=== PATIENT | female | born 1975 | race Caucasian/White ===

== ENCOUNTER 2020-03-23 11:44 | Emergency (ER) | payer SELFPAY ==
[2020-03-23 12:01] VITALS: BP 111/67; PULSE 87; RESP 16; TEMP 36.6; O2SAT 100; BMI 22.8
[2020-03-23 12:05] VITALS: BP 111/78; PULSE 88; RESP 18; O2SAT 98
[2020-03-23 12:20] VITALS: PULSE 88
--- NOTE | 2020-03-23 12:21 | ED_ITS ---
HPI - Extremity Problem General: Chief complaint: Extremity Injury, Upper Stated complaint: right shoulder/arm pain Time Seen by Provider: 03/23/20 12:10 History of Present Illness: HPI Narrative: Patient presents here with right shoulder pain he has a history of a chronic shoulder pain. She says the bicep tendon slides of the bicep groove and shoulder blade. Chiropractor who has had to put that back in place 3 times over the last couple weeks as per patient says that she need to come to the ER to get MRI done. Patient also history of thoracic outlet syndrome has seen neurologist for that. MD Complaint: joint pain Onset (ago): year(s) Pain Consistency: intermittent Location: right and upper extremity Severity scale (1-10): 3 Quality: aching Radiation: none Relieving factors: immobilization Exacerbating factors: range of motion Associated symptoms: Reports no associated symptoms; Deny chest pain, fever(s) or rash Review of Systems Const: Denies: fever(s), chills or body aches Eyes: Denies: change in vision or blurry vision ENMT: Denies: throat pain or nasal congestion Card: Denies: chest pain or dyspnea on exertion Resp: Denies: dyspnea, productive cough or non-productive cough GI: Denies: abdominal pain, nausea or vomiting Musc: Reports: extremity pain (Right shoulder, patient is a hairdresser, occupation aggravates pain) Skin/Breast: Denies: rash Neuro: Denies: headache(s) Psych: Denies: anxiety or depression Vu/Lymph: Denies: easy bruising Physical Exam Const: COMMON NORMALS: no acute distress Extremity: RIGHT UPPER EXTREMITY: Yes shoulder joint (Tenderness along the bicep fossa) Neuro: MOTOR EXAM: 5/5 motor strength present throughout Psych: COMMON NORMALS: mental status grossly normal Course Vital Signs: Vital signs: Vital Signs Temperature 97.9 F 03/23/20 12:01 Pulse Rate 88 03/23/20 12:20 Respiratory Rate 18 03/23/20 12:05 Blood Pressure 111/78 03/23/20 12:05 Pulse Oximetry 98 03/23/20 12:05 Discharge Plan Discharge Patient Disposition: Home Clinical Impression: Chronic right shoulder pain, Hx of thoracic outlet syndrome Condition: Stable Prescriptions: New Celebrex 100 mg capsule 100 mg PO BID Qty: 20 RF: 1 Discharge Orders: Discharge ED (Routine); Ordered 03/23/20 Ordered By: Álvaro Hathaway Discharge Diet: Usual diet Discharge Activity: Increase activity as tolerated Activity Restrictions/Additional Instructions: Follow-up with medical provider as directed. Take medications as prescribed. Return to the ER or your medical provider if condition worsens. Please read and understand discharge instructions. If any questions ask please. Hospital contact you with appoint with Dr. Sands. Coding Level of Care Code ED Warehouse Logistics Coordinator for Jaspal Suarez
[2020-03-23 12:22] VITALS: BP 111/82; PULSE 86; RESP 18; TEMP 36.6; O2SAT 96
--- NOTE | 2020-03-25 14:19 | DCPLANNER ---
assistant project manager had message to schedule a follow up appointment for patient with Dr. Sands at [facility]. assistant project manager called the office of Dr. Sands in [facility]. A follow up appointment was scheduled for Wednesday, April 08, 2020 at 9:[address] [place] [facility] [place] assistant project manager called patient and informed patient of the scheduled appointment. assistant project manager faxed patients information to the office of Dr. Sands.
--- NOTE | 2020-04-28 09:54 | DCPLANNER ---
Patient had a follow up appointment scheduled for 04.08.[address] S[place] [facility] [place].
== END 2020-03-23 12:24 | disposition home or self-care (01) ==
PROVIDERS: Emergency Provider Nurse Practitioner Family
DX: G89.29 Other chronic pain (principal); M25.511 Pain in right shoulder
CPT/HCPCS: 12345; 99281

== ENCOUNTER 2020-05-13 12:34 | Outpatient (CLI) | payer OTHER, SELFPAY ==
--- NOTE | 2020-05-13 13:03 | MR_ITS ---
WS: [id number] MRI RIGHT SHOULDER ARTHROGRAM TECHNIQUE: Coronal T2, axial PD, and post arthrogram imaging CLINICAL INFORMATION: SHOULDER INSTABILITY, RIGHT COMPARISON: MRI 2018 FINDINGS: Moderate degenerative arthritis AC joint. Preservation of the subacromial space. Normal supraspinatus and infraspinatus. Normal teres minor. Normal subscapularis. No evidence of acute or high-grade rota tor cuff tear. No significant tendinopathy. Normal bone marrow signal in the distal clavicle and humerus. Normal bone marrow signal in the glenoi d. No evidence of Hill-Sachs or Bankart lesion. Normal biceps tendon in the bicipital groove. Intra-articular biceps tendon is normal in appearance. Glenoid labrum is normal in appearance. No evidence of acute labral tear. Normal glenohumeral ligamen ts. Normal soft tissues. No other significant findings. No significant interval changes since 2018. MR/MR shoulder RT wo con* [id number] IMPRESSION: 1. Mild degenerative arthritis at the AC joint with preservation of the subacr omial space. 2. Normal bone marrow signal in the humerus and glenoid. No Hill-Sachs or Bank art lesions. 3. Rotator cuff is normal in appearance. No acute rotator cuff tears. 4. Normal biceps tendon in the bicipital groove. Normal intra-articular biceps tendon. 5. Glenoid labrum is normal in appearance. Normal glenohumeral ligaments. 6. No significant interval changes since 2018.
--- NOTE | 2020-05-13 13:04 | IR_ITS ---
WS: [id number] Right shoulder arthrogram, 05/13/2020 Clinical Data: SHOULDER INSTABILITY, RIGHT Comparison: None. Fluoroscopy time: 0.8 minutes. Findings: With the usual technique, a 22-gauge small spinal needle was inserted into the right shoulder joint. After localizing the needle tip with 1 mL of Omnipaque at a concentration of 240 mg/mL, an injection of 12 mL of dilute gadolinium was done. The shoulder joint shows a normal outline. No evidence of a rotator cuff tear could be seen. IR/IR arthrogram shoulderRT [id number] Impression: Satisfactory injection of a dilute gadolinium into the right shoulder joint for preparation for MR arthrogram.
[2020-05-13] MEDS: iohexol 240 mg/mL 50 mL Btl INTRA-ARTI (14:18)
== END 2020-05-13 12:35 | disposition home or self-care (01) ==
LOC: RADWPI 12:36
PROVIDERS: Visit Provider Orthopaedic Surgery
DX: M25.311 Other instability, right shoulder (principal)
CPT/HCPCS: 23350; 73221; 77002; Q9966

== ENCOUNTER → 2020-07-04 09:30 | Outpatient (BNVA) | payer OTHER, SELFPAY | PROVIDERS: Visit Provider Orthopaedic Surgery | DX: Z01.818 Encounter for other preprocedural examination (principal); Z01.811 Encounter for preprocedural respiratory examination | CPT/HCPCS: 71046; 80048; 85025 ==

== ENCOUNTER 2020-09-07 15:23 | Outpatient (CLI) | payer OTHER, SELFPAY ==
--- NOTE | 2020-09-07 15:29 | XR_ITS ---
WS: [id number] Right shoulder, 3 views, 09/07/2020 Clinical Data: right shoulder pain Comparison: None. Findings: No fractures or dislocations are seen. The AC joint is normal. The adjacent right clavicle, right sca pula and ribs are normal. The soft tissues are unremarkable. XR/XR shoulder RT min 2V* [id number] Impression: Negative right shoulder.
== END 2020-09-07 15:24 | disposition home or self-care (01) ==
PROVIDERS: PCP Family Medicine; Visit Provider Nurse Practitioner Family
DX: M25.511 Pain in right shoulder (principal)
CPT/HCPCS: 73030

== ENCOUNTER 2020-09-20 06:00 | Outpatient (RCR) | payer OTHER, SELFPAY | END 2020-09-24 23:59 | disposition home or self-care (01) | LOC: TPT 06:00 | PROVIDERS: PCP Orthopaedic Surgery; Referring Provider Orthopaedic Surgery; Visit Provider Orthopaedic Surgery | DX: S43.491D Other sprain of right shoulder joint, subsequent encounter (principal); X58.XXXD Exposure to other specified factors, subsequent encounter | CPT/HCPCS: 97110; 97162 ==

== ENCOUNTER 2020-09-25 06:00 | Outpatient (RCR) | payer OTHER, SELFPAY | END 2020-10-25 23:59 | disposition home or self-care (01) | LOC: TPT 06:00 | PROVIDERS: PCP Orthopaedic Surgery; Referring Provider Orthopaedic Surgery; Visit Provider Orthopaedic Surgery | DX: S43.491D Other sprain of right shoulder joint, subsequent encounter (principal); X58.XXXD Exposure to other specified factors, subsequent encounter | CPT/HCPCS: 97110; 97140; 97150; 97164; G0283 ==

== ENCOUNTER 2020-10-26 06:00 | Outpatient (RCR) | payer OTHER, SELFPAY | END 2020-11-24 23:59 | disposition home or self-care (01) | LOC: TPT 06:00 | PROVIDERS: PCP Orthopaedic Surgery; Referring Provider Orthopaedic Surgery; Visit Provider Orthopaedic Surgery | DX: S43.491D Other sprain of right shoulder joint, subsequent encounter (principal) | CPT/HCPCS: 97110; 97140; 97164 ==

== ENCOUNTER 2020-11-25 06:00 | Outpatient (RCR) | payer OTHER, SELFPAY | END 2020-12-25 23:59 | disposition home or self-care (01) | LOC: TPT 06:00 | PROVIDERS: PCP Orthopaedic Surgery; Referring Provider Orthopaedic Surgery; Visit Provider Orthopaedic Surgery | DX: S43.491D Other sprain of right shoulder joint, subsequent encounter (principal); X58.XXXD Exposure to other specified factors, subsequent encounter | CPT/HCPCS: 97032; 97110; 97140; 97164; G0283 ==

== ENCOUNTER 2020-12-26 06:00 | Outpatient (RCR) | payer OTHER, SELFPAY | END 2021-01-23 13:06 | disposition home or self-care (01) | LOC: TPT 06:00 | PROVIDERS: PCP Orthopaedic Surgery; Referring Provider Orthopaedic Surgery; Visit Provider Orthopaedic Surgery | DX: S43.491D Other sprain of right shoulder joint, subsequent encounter (principal); X58.XXXD Exposure to other specified factors, subsequent encounter | CPT/HCPCS: 97032; 97110; 97140; 97164 ==

== ENCOUNTER → 2021-02-20 12:06 | Outpatient (BNVA) | payer OTHER, SELFPAY | PROVIDERS: PCP Orthopaedic Surgery; Visit Provider Nurse Practitioner Family | DX: Z11.52 Encounter for screening for COVID-19 (principal); Z20.822 Contact with and (suspected) exposure to COVID-19 | CPT/HCPCS: 87635 ==

== ENCOUNTER → 2021-03-09 13:31 | Outpatient (BNVA) | payer OTHER, SELFPAY | PROVIDERS: PCP Orthopaedic Surgery; Visit Provider Nurse Practitioner Family | DX: Z20.822 Contact with and (suspected) exposure to COVID-19 (principal) | CPT/HCPCS: 87635 ==

== ENCOUNTER → 2021-09-14 16:29 | Outpatient (BNVA) | payer OTHER, SELFPAY | PROVIDERS: PCP Orthopaedic Surgery; Visit Provider Nurse Practitioner Family | DX: B00.1 Herpesviral vesicular dermatitis (principal); L08.9 Local infection of the skin and subcutaneous tissue, unspecified; F41.9 Anxiety disorder, unspecified; F32.9 Major depressive disorder, single episode, unspecified; R42 Dizziness and giddiness; R60.9 Edema, unspecified; T14.8XXA Other injury of unspecified body region, initial encounter; R60.0 Localized edema | CPT/HCPCS: 80053 ==

== ENCOUNTER → 2021-11-09 10:27 | Outpatient (BNVA) | payer OTHER, SELFPAY | PROVIDERS: PCP Orthopaedic Surgery; Visit Provider Nurse Practitioner Family | DX: Z98.890 Other specified postprocedural states (principal); M25.511 Pain in right shoulder; R20.0 Anesthesia of skin; R20.2 Paresthesia of skin | CPT/HCPCS: 73030 ==

== ENCOUNTER → 2022-03-19 11:44 | Outpatient (BNVA) | payer OTHER, SELFPAY | PROVIDERS: PCP Orthopaedic Surgery; Visit Provider Nurse Practitioner Family | DX: L08.9 Local infection of the skin and subcutaneous tissue, unspecified (principal); M54.50 Low back pain, unspecified; R20.2 Paresthesia of skin; R29.898 Other symptoms and signs involving the musculoskeletal system; W19.XXXA Unspecified fall, initial encounter; F41.9 Anxiety disorder, unspecified; F32.9 Major depressive disorder, single episode, unspecified; R42 Dizziness and giddiness; J32.0 Chronic maxillary sinusitis; H65.03 Acute serous otitis media, bilateral | CPT/HCPCS: 80053; 82607; 82746 ==

== ENCOUNTER 2022-04-16 07:09 | Outpatient (CLI) | payer OTHER, SELFPAY ==
--- NOTE | 2022-04-16 07:15 | US_ITS ---
WS: [id number] RIGHT UPPER QUADRANT ULTRASOUND HISTORY: ELEVATED LFT COMPARISON: None available. Liver: 17.7 cm in length. Normal size liver. No bile duct dilatation or mass. Portal Vein: Normal hepatopetal flow with monophasic waveform. Gallbladder: Normally distended gallbladder with no stones or wall thickening. CBD: 0.3 cm Pancreas: Normal size and echogenicity. Right kidney: 10.4 cm in length. Normal size and echogenicity. No hydronephrosis or mass. Aorta and IVC: Unremarkable abdominal aorta and IVC. No ascites. US/US liver [id number] IMPRESSION: Normal RIGHT upper quadrant ultrasound.
== END 2022-04-16 07:10 | disposition home or self-care (01) ==
LOC: RAD 07:12
PROVIDERS: PCP Nurse Practitioner Family; Visit Provider Nurse Practitioner Family
DX: R94.5 Abnormal results of liver function studies (principal)
CPT/HCPCS: 76705

== ENCOUNTER 2022-08-23 11:17 | Outpatient (CLI) | payer OTHER, SELFPAY ==
--- NOTE | 2022-08-23 11:23 | MM_ITS ---
WS: [id number] VIEWS: MLO and CC views both breasts. 3D digital tomosynthesis is also included in this exam. Comparison made with prior exam of 10/18/2011 and 09/09/2012. Findings: There was no sign of mass, architectural distortion or suspicious calcification in either breast. Th e breasts are extremely dense which lowers the sensitivity of mammography. MM/[place] [id number] Impression: BI-RADS: 2-Benign finding. FOLLOW-UP: 1 Year Follow-up This mammogram was also analyzed by the Computer Aided Detection System R2 Imag e Real Estate Teacher.
--- NOTE | 2022-08-23 11:44 | XR_ITS ---
WS: [id number] Exam: XR cervical spine 3V* [id number] Date/Time of Exam: 08/23/2022 11:46 AM Reason For Exam: pre surgical clearance for breast reduction Findings: In the AP projection, the cervical spine is straight. The odontoid process is intact. There are no c ervical ribs. In the lateral projections, the cervical curve is well maintained. There is no angula tion or fracture of the cervical spine. No soft tissue changes are noted. XR/XR cervical spine 3V* [id number] IMPRESSION: Negative cervical spine.
--- NOTE | 2022-08-23 11:44 | XR_ITS ---
WS: [id number] Exam: XR thoracic spine 3V* [id number] Date/Time of Exam: 08/23/2022 11:46 AM Reason For Exam: pre surgical clearance for breast reduction Findings: In the AP projection, the thoracic spine is straight. In the lateral projection, the thoracic curve is well maintained. The intervertebral disc spaces are intact. No fractures or anomalies of the tho racic spine are noted. XR/XR thoracic spine 3V* [id number] IMPRESSION: Negative thoracic spine.
== END 2022-08-23 11:18 | disposition home or self-care (01) ==
PROVIDERS: PCP Nurse Practitioner Family; Visit Provider Nurse Practitioner Family
DX: N62 Hypertrophy of breast (principal); M25.511 Pain in right shoulder; M25.512 Pain in left shoulder; M54.2 Cervicalgia
CPT/HCPCS: 72040; 72072; 77063; 77067

== ENCOUNTER → 2022-10-30 13:52 | Outpatient (BNVA) | payer OTHER, SELFPAY | PROVIDERS: PCP Nurse Practitioner Family; Visit Provider Nurse Practitioner Family | DX: R05.9 Cough, unspecified (principal); R50.9 Fever, unspecified; J32.0 Chronic maxillary sinusitis; J40 Bronchitis, not specified as acute or chronic; Z11.52 Encounter for screening for COVID-19; J06.9 Acute upper respiratory infection, unspecified | CPT/HCPCS: 87486; 87581; 87633 ==

== ENCOUNTER → 2022-11-30 13:02 | Outpatient (BNVA) | payer OTHER, SELFPAY | PROVIDERS: PCP Nurse Practitioner Family; Visit Provider Nurse Practitioner Family | DX: M79.642 Pain in left hand (principal) | CPT/HCPCS: 73130 ==

== ENCOUNTER → 2023-02-26 08:47 | Outpatient (BNVA) | payer OTHER, SELFPAY | PROVIDERS: PCP Nurse Practitioner Family; Visit Provider Nurse Practitioner Family | DX: F41.9 Anxiety disorder, unspecified (principal); F32.9 Major depressive disorder, single episode, unspecified; M79.7 Fibromyalgia; R60.9 Edema, unspecified; B00.1 Herpesviral vesicular dermatitis; G89.29 Other chronic pain; M79.642 Pain in left hand | CPT/HCPCS: 80053; 80061; 84443 ==

== ENCOUNTER → 2023-08-01 10:46 | Outpatient (BNVA) | payer OTHER, SELFPAY | PROVIDERS: PCP Nurse Practitioner Family; Visit Provider Nurse Practitioner Family | DX: F41.9 Anxiety disorder, unspecified (principal); F32.9 Major depressive disorder, single episode, unspecified; G47.00 Insomnia, unspecified; E78.2 Mixed hyperlipidemia; L29.9 Pruritus, unspecified; B00.1 Herpesviral vesicular dermatitis; R60.9 Edema, unspecified; M79.7 Fibromyalgia; Z79.899 Other long term (current) drug therapy | CPT/HCPCS: 80053; 80061; 85025 ==

== ENCOUNTER 2023-10-24 08:37 | Outpatient (CLI) | payer OTHER, SELFPAY ==
--- NOTE | 2023-10-24 09:00 | MM_ITS ---
WS: [id number] BILATERAL 3D TOMOSYNTHESIS DIGITAL SCREENING MAMMOGRAPHY WITH CAD CLINICAL INFORMATION: painful lump in axilla HISTORY: Screening mammogram. No current complaints. COMPARISON: 2022 TECHNIQUE: Bilateral CC and MLO views. FINDINGS: The breasts are composed of heterogeneous fibroglandular density tissue, which can limit the detectio n of small underlying mass lesions. Palpable marker and pain markers in the upper outer RIGHT breast and RIGHT axilla. Ultrasound is pending. ULTRASOUND BREAST RIGHT TECHNIQUE: Ultrasound right breast focused area of concern. CLINICAL INFORMATION: painful lump in axilla FINDINGS: Ultrasound upper outer quadrant RIGHT breast in the areas of concern. Incidental cyst in the area of concern RIGHT axilla measuring 6 x 7 x 5 mm at the 11 o'clock position with through transmission. Sma ll amount of internal debris. No other suspicious findings. Recommend return to annual screening mamm ography. MM/[place] [id number] IMPRESSION: BI-RADS: 2-Benign FOLLOW UP: 1 Year Follow-up Recommend return to annual screening mammography.
--- NOTE | 2023-10-24 09:30 | US_ITS ---
WS: [id number] BILATERAL 3D TOMOSYNTHESIS DIGITAL SCREENING MAMMOGRAPHY WITH CAD CLINICAL INFORMATION: painful lump in axilla HISTORY: Screening mammogram. No current complaints. COMPARISON: 2022 TECHNIQUE: Bilateral CC and MLO views. FINDINGS: The breasts are composed of heterogeneous fibroglandular density tissue, which can limit the detectio n of small underlying mass lesions. Palpable marker and pain markers in the upper outer RIGHT breast and RIGHT axilla. Ultrasound is pending. ULTRASOUND BREAST RIGHT TECHNIQUE: Ultrasound right breast focused area of concern. CLINICAL INFORMATION: painful lump in axilla FINDINGS: Ultrasound upper outer quadrant RIGHT breast in the areas of concern. Incidental cyst in the area of concern RIGHT axilla measuring 6 x 7 x 5 mm at the 11 o'clock position with through transmission. Sma ll amount of internal debris. No other suspicious findings. Recommend return to annual screening mamm ography. US/US breast RT limited* [id number] IMPRESSION: BI-RADS: 2-Benign FOLLOW UP: 1 Year Follow-up Recommend return to annual screening mammography.
== END 2023-10-24 08:38 | disposition home or self-care (01) ==
LOC: RAD 08:38
PROVIDERS: PCP Nurse Practitioner Family; Visit Provider Nurse Practitioner Family
DX: N60.01 Solitary cyst of right breast (principal); R92.333 Mammographic heterogeneous density, bilateral breasts; M79.621 Pain in right upper arm
CPT/HCPCS: 76642; 77062; G0279

== ENCOUNTER 2024-06-25 09:07 | Outpatient (CLI) | payer OTHER, SELFPAY ==
--- NOTE | 2024-06-25 09:30 | MM_ITS ---
WS: [id number] BILATERAL 3D TOMOSYNTHESIS DIGITAL DIAGNOSTIC MAMMOGRAPHY WITH CAD CLINICAL INFORMATION: N63.0 - Unspecified lump in unspecified breast HISTORY: RIGHT axilla pain COMPARISON: 2023 TECHNIQUE: Bilateral CC, MLO, and ML views. FINDINGS: The breasts are composed of heterogeneous fibroglandular density, which can limit the detection of small underlying mass lesions. Dense parenchymal tissue bilaterally. This is similar to previous. Palpable marker in the RIGHT axilla with a few partially visualized lymph nodes with normal fatty hilum. Ultrasound of this area is pending. LEFT breast is unremarkable and unchanged. ULTRASOUND BREAST RIGHT TECHNIQUE: Ultrasound right breast focused area of concern. CLINICAL INFORMATION: N63.0 - Unspecified lump in unspecified breast COMPARISON: 10/24/2023 FINDINGS: Ultrasound RIGHT breast in the area of patient concern. Ultrasound RIGHT axilla demonstrates a prominent lymph node with a normal fatty hilum measuring 1.1 x 1.6 x 0.9 cm. No significant cortical thickening. Additional similar-appearing prominent lymph node with normal fatty hilum measuring 1.1 x 1.4 cm. These have a benign appearance and are most likely reactive. If continued clinical concern, 1 of these lymph nodes could be biopsied especially if enlarging. Otherwise recommend return to annual screening mammography MM/MM diag BI tomosynthesis [id number] IMPRESSION: DENSITY: The breasts are heterogeneously dense, which may obscure small masses. BI-RADS: 2 - Benign FOLLOW UP: 1 Year Follow-up If continued clinical or patient concern, 1 of these lymph nodes could be biops ied especially if enlarging. Otherwise recommend return to annual screening [facility] mography
--- NOTE | 2024-06-25 10:45 | US_ITS ---
WS: [id number] BILATERAL 3D TOMOSYNTHESIS DIGITAL DIAGNOSTIC MAMMOGRAPHY WITH CAD CLINICAL INFORMATION: N63.0 - Unspecified lump in unspecified breast HISTORY: RIGHT axilla pain COMPARISON: 2023 TECHNIQUE: Bilateral CC, MLO, and ML views. FINDINGS: The breasts are composed of heterogeneous fibroglandular density, which can limit the detection of small underlying mass lesions. Dense parenchymal tissue bilaterally. This is similar to previous. Palpable marker in the RIGHT axilla with a few partially visualized lymph nodes with normal fatty hilum. Ultrasound of this area is pending. LEFT breast is unremarkable and unchanged. ULTRASOUND BREAST RIGHT TECHNIQUE: Ultrasound right breast focused area of concern. CLINICAL INFORMATION: N63.0 - Unspecified lump in unspecified breast COMPARISON: 10/24/2023 FINDINGS: Ultrasound RIGHT breast in the area of patient concern. Ultrasound RIGHT axilla demonstrates a prominent lymph node with a normal fatty hilum measuring 1.1 x 1.6 x 0.9 cm. No significant cortical thickening. Additional similar-appearing prominent lymph node with normal fatty hilum measuring 1.1 x 1.4 cm. These have a benign appearance and are most likely reactive. If continued clinical concern, 1 of these lymph nodes could be biopsied especially if enlarging. Otherwise recommend return to annual screening mammography US/US breast RT limited* [id number] IMPRESSION: DENSITY: The breasts are heterogeneously dense, which may obscure small masses. BI-RADS: 2 - Benign FOLLOW UP: 1 Year Follow-up If continued clinical or patient concern, 1 of these lymph nodes could be biops ied especially if enlarging. Otherwise recommend return to annual screening [facility] mography
--- NOTE | 2024-06-25 12:45 | US_ITS ---
WS: [id number] BILATERAL 3D TOMOSYNTHESIS DIGITAL DIAGNOSTIC MAMMOGRAPHY WITH CAD CLINICAL INFORMATION: N63.0 - Unspecified lump in unspecified breast HISTORY: RIGHT axilla pain COMPARISON: 2023 TECHNIQUE: Bilateral CC, MLO, and ML views. FINDINGS: The breasts are composed of heterogeneous fibroglandular density, which can limit the detection of small underlying mass lesions. Dense parenchymal tissue bilaterally. This is similar to previous. Palpable marker in the RIGHT axilla with a few partially visualized lymph nodes with normal fatty hilum. Ultrasound of this area is pending. LEFT breast is unremarkable and unchanged. ULTRASOUND BREAST RIGHT TECHNIQUE: Ultrasound right breast focused area of concern. CLINICAL INFORMATION: N63.0 - Unspecified lump in unspecified breast COMPARISON: 10/24/2023 FINDINGS: Ultrasound RIGHT breast in the area of patient concern. Ultrasound RIGHT axilla demonstrates a prominent lymph node with a normal fatty hilum measuring 1.1 x 1.6 x 0.9 cm. No significant cortical thickening. Additional similar-appearing prominent lymph node with normal fatty hilum measuring 1.1 x 1.4 cm. These have a benign appearance and are most likely reactive. If continued clinical concern, 1 of these lymph nodes could be biopsied especially if enlarging. Otherwise recommend return to annual screening mammography
== END 2024-06-25 09:08 | disposition home or self-care (01) ==
PROVIDERS: PCP Nurse Practitioner Family; Visit Provider Nurse Practitioner Family
DX: R59.0 Localized enlarged lymph nodes (principal); R92.333 Mammographic heterogeneous density, bilateral breasts
CPT/HCPCS: 76642; 76882; 77062; G0279

== ENCOUNTER → 2024-07-07 09:13 | Outpatient (BNVA) | payer OTHER, SELFPAY | PROVIDERS: PCP Nurse Practitioner Family; Visit Provider Nurse Practitioner Family | DX: R22.31 Localized swelling, mass and lump, right upper limb (principal); E78.2 Mixed hyperlipidemia; R53.83 Other fatigue; R59.0 Localized enlarged lymph nodes | CPT/HCPCS: 80053; 80061; 82306; 82607; 84443; 85025 ==

== ENCOUNTER 2024-08-22 10:17 | Emergency (ER) | payer OTHER, SELFPAY ==
--- OUTSIDE RECORDS SUMMARY | 2024-04-16 08:40 | XMS_ITS ---
Author Organization [facility] Address [address] [place] [address] Care Team Providers Care Physician Assistant Primary Care Name Role Phone Tye Garcia Unavailable REASON FOR VISIT 2 MONTH F/U Encounters Encounter Location Date Provider Diagnosis [facility] [address] [place] [phone] 04/16/2024 Tye Garcia Plan Of Treatment No Information Progress Notes * Merlene BIRCHDOB: 8 (48 yo F)Acc No.[id number]:04/16/2024 Progress Notes Patient: Merlene BACA Provider: Vadim Garcia MD :1975 A ge:48 Y S ex:Female Date:04/16/2024 Address:[address] [place] [phone] Subjective: * Chief Complaints: * 1 . 2 MONTH F/U. * Medical History: Objective: * Vitals: Assessment: Plan: * Treatment: Forms: * Billing Information: * Visit Code: * Procedure Codes: Care Plan Details* * Electronic signature of Kael Garcia MD on 08/22/2024 at 10:22 AM CDT Sign off status: Pending * Provider: Vadim Garcia MD Date: 04/16/2024 Generated for Colleen gaston/Facarol anng/eTransmitting on: 0 08/22/2024 10:22 AM CDT
[2024-08-22 10:19] VITALS: BMI 26.3
--- OUTSIDE RECORDS SUMMARY | 2024-08-22 10:22 | XMS_ITS | Clinical Summary ---
Author Organization [facility] Administrative Offices Address [address] [place] [address] Care Team Providers Care Plc Programmer Name Role Phone Unavailable Primary Care Provider Unavailabl e Encounters Date Type Department Care Team Description 08/18/2024 External Device Data [facility]STRACTION Provider, Abstract 08/18/2024 External Device Data [facility]STRA[facility] Provider, Abstract 08/18/2024 External Device Data [facility]STRA[facility] Provider, Abstract 06/25/2024 11:50 AM CDT - 06/25/2024 11:59 PM CDT Hospital Encounter [facility] [address] [place] [address] [facility], External Provider Discharge Disposition: Home or Self Care 06/25/2024 11:50 AM CDT - 06/25/2024 11:59 PM CDT Hospital Encounter [facility] [address] [facility] [address] [place] [address] [facility], External Provider Discharge Disposition: Home or Self Care from Last 3 Months Social History Tobacco Use Types Packs/Day Years Used Date Smoking Tobacco: Never Assessed Comments Unknown Sex and Gender Information Value Date Recorded Sex Assigned at Not on file Legal Sex Female 2:14 PM CDT Gender Identity Not on file Sexual Orientation Not on file Plan of Treatment Upcoming Encounters Date Type Department Care Team (Late st Contact Info) Description 09/24/2024 10:30 AM CDT Appointment [facility] [address] [facility] [address] [place] [phone] Cale Goodman MD [address] [place] [address] Health Maintenance Due Date Last Done Comments DTAP/TDAP/TD VACCINES (1 - Tdap) 1996 HEPATITIS B VACCINES (1 of 3 - 19+ 3-dose series) 1996 HPV/Cotest (21-29) 1998 CERVICAL CANCER SCREENING 12/20/2007 HPV/Cotest (30-65) 12/20/2007 PAP SMEAR 12/20/2007 BREAST CANCER SCREENING 2017 COLORECTAL SCREENING 2022 Colorectal Cancer Screening 2022 FIT-DNA Q 3 years 2022 FIT/FOBT Q 1 year 2022 Flex Sig/CT Colonography Q 5 years 2022 INFLUENZA VACCINE (#1) 2023 HPV VACCINES Aged Out No longer eligi ble based on patient's age to complete this topic Procedures Procedure Name Priority Date/Time Associated Diagnosis Comments US PRIOR STUDY Routine 06/25/2024 11:50 AM CDT Visit for screening mammogram MAMMO PRIOR STUDY Routine 06/25/2024 11: 50 AM CDT Visit for screening mammogram from Last 3 Months Results * US PRIOR STUDY (06/25/2024 11:50 AM CDT) Narrative Brigid Jorge E - 08/14/2024 11:47 AM CDT This exam was auto finalized to allow images to be scanned to PACS. Procedure Note Brigid Jorge E - 08/14/2024 This exam was auto finalized to allow images to be scanned to PACS. us External Provider [facility] ORDERABLES Final Resu lt * MAMMO PRIOR STUDY (06/25/2024 11:50 AM CDT) Narrative Brigid Jorge E - 08/14/2024 11:46 AM CDT This exam was auto finalized to allow images to be scanned to PACS. Procedure Note Brigid Jorge E - 08/14/2024 This exam was auto finalized to allow images to be scanned to PACS. us External Provider [facility] ORDERAB LES Final Result from Last 3 Months Insurance [employer] [id number] [facility] [place] [phone]
--- OUTSIDE RECORDS SUMMARY | 2024-08-22 10:22 | XMS_ITS | Encounter Summary ---
Author Organization [employer] [facility] Address [address] [place] [address] Care Team Providers Care Java Developer With Security Clearance Name Role Phone Unavailable Primary Care Provider Unavailabl e Encounter Details Date Type Department Care Team (Late st Contact Info) Description 08/18/2024 External Device Data [facility] Provider, Abstract NO ADDRESS ON FILE Social History Tobacco Use Types Packs/Day Years Used Date Smoking Tobacco: Never Assessed Comments Unknown Sex and Gender Information Value Date Recorded Sex Assigned at Not on file Legal Sex Female 2:14 PM CDT Gender Identity Not on file Sexual Orientation Not on file documented as of this encounter Plan of Treatment Upcoming Encounters Date Type Department Care Team (Late st Contact Info) Description 09/24/2024 10:30 AM CDT Appointment [facility] [address] [facility] [address] [place] [phone] Cale Goodman MD [address] [place] [phone] documented as of this encounter Visit Diagnoses Not on filedocumented in this encounter
--- OUTSIDE RECORDS SUMMARY | 2024-08-22 10:22 | XMS_ITS | Encounter Summary ---
Author Organization [employer] [facility] Address [address] [place] [address] Care Team Providers Care Movable Bulkhead Installer Name Role Phone Unavailable Primary Care Provider [...] Info) Description 09/24/2024 10:30 AM CDT Appointment [facility] [address] [facility] [address] [place] [phone] Cale Goodman MD [address] [place] [phone] documented as of this encounter Visit Diagnoses Not on filedocumented in this encounter
--- OUTSIDE RECORDS SUMMARY | 2024-08-22 10:23 | XMS_ITS | Patient Health Record ---
Author Organization [facility] Address [address] [place] [address] Care Team Providers Care Dredgemaster Name Role Phone Tye Garcia Unavailable [phone] Allergies Allergen (clinical drug ingredient) Drug/Non Drug Allergy documented on EMR Reaction Allergy Type Onset Date Status Darvocet A500 Unknown Drug Allergy Act ulysses acetaminophen / oxycodone Percocet Unknown Drug Allergy Active Wellbutrin Unknown Drug Allergy Active codeine Codeine , Drug Allergy Active gabapentin Gabapentin Unknown Drug Allergy Activ e Latex Latex Unknown Allergy Active morphine Morphine Unknown Drug Allergy Active Reason For Referral Reason right sciatica Diagnosis 1 Sciatica of right si de (M54.31) Referral Organization [facility] Referring Provider First Name Uriel morley Referring Provider Last Name Radha Referring Provider Speciality Internal M edicine Referred Provider Gross Therapy Gonzalo moe (GTAlexei)Juan Referred Provider Specialty Physical The rapist General Notes Suzanna Peguero 02:35:34 PM >faxed GTS Saeed Lamb Heidi 01/14/2024 01:18:25 PM >PER INCOMING FAX, WAITING SIG. SCHEDULED 01/09Saeed Heidi 01/15/2024 01:11:14 PM >PROGRESS NOTES IN REFERRAL FILE Referral Priority Routine Referral Appointment Date 01/10/2024 Medications Medication SIG (Take, Route, Frequency, Duration) Notes Start Date End Date Status Lurasidone HCl 20 MG 1 tablet in the evening with food Orally Once a day for 30 day(s) 01/07/2024 Active Ibuprofen 800 MG 1 tablet with food or milk as needed Orally THREE TIMES DAILY Active FLUoxetine HCl 40 MG 1 capsule Orally Once a day Active drug or medication No known medications drug or medication 11/17/2018 Not-Taking Immunizations Vaccine Route Administration Date Status Comme nts Flucelvax Trivalent, Syringe 0.5 mL, PF Unknown 024 Refused Social History Tobacco Use: Social History Observation Description Date Details (start date - stop date) Current Smoker NA - NA PHQ-9 Question Answer Notes Little interest or pleasure in doing things Vickie ral days Feeling down, depressed, or hopeless Several day s Trouble falling or staying asleep, or sleeping t oo much Several days Feeling tired or having little energy Several da ys Poor appetite or overeating Several days Feeling bad about yourself, or that you are a failure, or have let yourself or your family down Several days Trouble concentrating on thi ngs, such as reading the newspaper or watching television Several days Moving or speaking so slowly that other people could have noticed. Or the opposite ? being so fidgety or restless that you have been moving around a lot more than usual Several days Thoughts that you would be b kendal off , or of hurting yourself in some way Not at all Total Score 8 Interpretation Mild Depression Tobacco Control (Standard) Question Answer Notes Tobacco use: Current smoker How often do you smoke cigarettes? Every day How many cigarettes a day do you smoke? 11 AUDIT-C (Standard) Question Answer Notes Did you have a drink containing alcohol in the p ast year? No Points 0 Interpretation Negative Section Notes: TOB:01/07/24 DEP: 01/07/24 01/07/24 Problems Problem Type SNOMED Code ICD Code Onset Dates Problem Status W/U Status Risk Notes Problem 825299603 Fibromyalgia (M79.7) Active confirmed Problem [id number] Sciatica of right side (M54.31) Active confirmed Vital Signs Heart Rate 68 /min 01/07/2024 Temperature 98.4 degrees Fahrenheit 02/13/2024 unab le to detect HR and Oxygen due to long thick fake nails Blood pressure diastolic 68 mm Hg 02/13/2024 manjinder ble to detect HR and Oxygen due to long thick fake nails Oximetry 96 % 01/07/2024 Weight-kg 64.23 kg 02/13/2024 unable to detec t HR and Oxygen due to long thick fake nails Height 62 in 02/13/2024 unable to detec t HR and Oxygen due to long thick fake nails Blood pressure systolic 110 mm Hg 02/13/2024 unab le to detect HR and Oxygen due to long thick fake nails Weight 141.6 lbs 02/13/2024 unable to detec t HR and Oxygen due to long thick fake nails BMI 25.9 kg/m2 02/13/2024 unable to detec t HR and Oxygen due to long thick fake nails Encounters Encounter Location Date Provider Diagnosis [facility] [address] [place] [phone] 02/13/2024 [facility] [address] [phone] 02/14/2024 [facility] [address] [phone] 02/13/2024 Tye Garcia Sciatica of right side M54.31 ; Immunization not carried out because of patient refusal Z28.21 and Encounter for immunization Z23 [facility] [address] [phone] 01/07/2024 Tye Garcia Sciatica of right side M54.31 ; Fibromyalgia M79.7 and Depression screen Z13.31 Assessments Encounter Date Diagnosis (ICD Code) Assessment Notes Treatment Notes Treatment Clinical Notes Section Notes 02/13/2024 Immunization not carried out because of patient refusal (ICD-10 - Z28.21) 02/13/2024 Sciatica of right side (ICD-10 - M54.31) 01/07/2024 Fibromyalgia (ICD-10 - M79.7) 01/07/2024 Sciatica of right side (ICD-10 - M54.31) 01/07/2024 Depression screen (ICD-10 - Z13.31) 02/13/2024 Encounter for immunization (ICD-10 - Z23) Plan Of Treatment No Information Insurance Providers Payer Name Payer Address Payer Phone Subscriber Number Group Number Insured Name Patient Relationship to Insured Coverage Start Date Coverage End Date [facility] Medicaid Replacement [address] [facility] [place] [phone] [id number] Merlene Birch Self - patient is the insured Medical (General) History Medical History History ICD Code Problem:Anxiety (finding) , Status :: Ac tive Problem:Arthritis (disorder) , Status :: Active Problem:Bipolar disorder (disorder) , St atus :: Active Problem:Depressive disorder (disorder) , Status :: Active Problem:Tobacco user (finding) , Status :: Active fibromyalgia Surgical History Surgery Date(Month/Year) EGD 2016 Colonoscopy 2016 lumpectomy both breast 2000 hysterectomy 2010 L shoulder surgery
--- OUTSIDE RECORDS SUMMARY | 2024-08-22 10:23 | XMS_ITS | Encounter Summary ---
Author Organization [facility] Address [address] [place] [address] Care Team Providers Care Senior Sales Administrator Name Role Phone Unavailable Primary Care Provider [...] Info) Description 09/24/2024 10:30 AM CDT Appointment [facility] [address] [facility] [address] [place] [phone] Cale Goodman MD [address] [place] [phone] documented as of this encounter Visit Diagnoses Not on filedocumented in this encounter
--- NOTE | 2024-08-22 11:09 | CTR_ITS ---
PROCEDURE INFORMATION: Exam: CT Abdomen And Pelvis With Contrast Exam date and time: 08/22/2024 11:38 AM Age: 48 years old Clinical indication: Abdominal pain; Other: Low abd pain, diarrhea 20x day, pink/mucos stool; Prior surgery; Surgery date: 6+ months; Surgery type: Hysto TECHNIQUE: Imaging protocol: Computed tomography of the abdomen and pelvis with contrast. Radiation optimization: All CT scans at this facility use at least one of these dose optimization techniques: automated exposure control; mA and/or kV adjustment per patient size (includes targeted exams where dose is matched to clinical indication); or iterative reconstruction. Contrast material: OMNI 350; Contrast volume: 100 ml; Contrast route: INTRAVENOUS (IV); COMPARISON: [place] [id number] 04/16/2022 7:21 AM RADIATION DOSE METRICS: Total DLP (mGy-cm): 464.02 FINDINGS: Lungs: Mild dependent atelectasis at the left lung base. Liver: Normal. No mass. Gallbladder and biliary ducts: Normal. No calcified stones. No ductal dilation. Pancreas: Normal. No ductal dilation. Spleen: Normal. No splenomegaly. Adrenal glands: Normal. No mass. Kidneys and ureters: Normal. No hydronephrosis. Stomach and bowel: There is mild wall thickening of the colon diffusely consistent with diffuse colitis. Appendix: No evidence of appendicitis. Intraperitoneal space: Unremarkable. No free air. No significant fluid collection. Vasculature: Unremarkable. No abdominal aortic aneurysm. Lymph nodes: Unremarkable. No enlarged lymph nodes. Urinary bladder: Unremarkable as visualized. Reproductive: Unremarkable as visualized. Bones/joints: Unremarkable. No acute fracture. Soft tissues: Unremarkable. CT/CT abdomen pelvis w con* [id number] IMPRESSION: Diffuse colitis.
--- NOTE | 2024-08-22 11:10 | ED_ITS ---
HPI - Nausea/Vomiting/Diarrhea 2 General: Chief complaint: Nausea/Vomiting/Diarrhea Stated complaint: n/d 5days Time Seen by Provider: 08/22/24 10:35 History of Present Illness: 48-year-old female presents emergency de partment complaining of diarrhea, stomach discomfort. She reports she has chronic diarrhea for a couple years usually 3-5 times a day. However he got much worse on Saturday 4-1/2 days ago. She did finish a 10-day course of clindamycin for a breast abscess approximately 2 weeks ago. No known history of C. difficile. She has had a colonoscopy and reports that she was never told that she had inflammatory bowel disease. She takes probiotics. Patient reports average of 20 bowel movements a day since Saturday. She reports low volume but high urgency. She reports today and yesterday she started noticing a slight pinkish discoloration and some mucus which concerned her. She reports no systemic symptoms such as fever or chills. She is still eating and drinking. She does not have nausea or vomiting. She does have mild to moderate discomfort in the abdomen. Associated symtoms: Denies altered mental status Related Data Previous Rx's ?Medication ?Instructions ?Recorded ibuprofen 800 mg tablet 800 mg PO TID PRN pain #60 t abs 08/01/23 nystatin-triamcinolone 100,000 1 applic topical TID #6 0 grams 07/30/24 unit/g-0.1 % topical cream fidaxomicin 200 mg tablet (Dificid) 200 mg PO BID 10 d ays #20 tabs 08/22/24 Allergies Allergy/AdvReac Type Severity Reaction Status Date / Time Latex, Natural Rubber Allergy Intermediate ALGY-Rash Verified 08/10/24 14:25 acetaminophen (From Percocet) Allergy ADR-Agitate Verified 08/10/24 14:25 d bupropion (From Wellbutrin) Allergy ALGY-Swell Verified 08/10/24 14:25 Lip/Tongue/Throat codeine Allergy ADR-Itching Verified 08/10/24 14:25 latex Allergy ALGY-Hives Verified 08/10/24 14:25 morphine Allergy ALGY-Hives Verified 08/10/24 14:25 oxycodone (From Percocet) Allergy ADR-Agitate Verified 08/10/24 14:25 d propoxyphene (From Allergy ADR-Agitate Verified 08/10/24 14:25 Darvocet-N 100) d tramadol (From Ultracet) Allergy ADR-Agitate Verified 08/10/24 14:25 d Review of Systems 2 General: Reports: 10 or more systems reviewed and unremarkable except in HPI and below PFSH ED 2 PFSH: Family History Father Heart disease Hypertension Stroke Mother Diabetes Grandmother Breast cancer Hypertension Diabetes Grandfather Ovarian cancer Heart disease Hypertension Hyperlipidemia Denies family history of Colon cancer Uterine cancer Thyroid disease Social History Smoking and tobacco/nicotine status: current every day tobacco/nicotine user (1/2 to 1 ppd) cigarettes Packs smoked per day: 1 Years cigarettes smoked: 35 Second hand smoke exposure: No Alcohol intake: never Substance/Drug Use: never Caregiver/support person: Yes Lives independently: Yes Household members: spouse Marital status: Current occupational status: employed Current occupation: [employer] Current gender identity: Female Special chari needs: No Agree to transfusion: Yes Physical Exam 2 Const: COMMON NORMALS: no limitations, alert and well nourished EXAM LIMITATIONS: no altered mental status HENMT: COMMON NORMALS: normocephalic, atraumatic and external ears normal H EAD & SCALP: normocephalic and atraumatic EXTERNAL EAR: Yes external ears normal MOUTH: no muffled voice Eye: COMMON NORMALS: EOMs intact bilaterally, conjunctivae normal and no scleral icterus CONJUNCTIVA: Yes conjunctivae normal Neck/C-Spine: COMMON NORMALS: no JVD GENERAL: Yes normal visual inspection and Yes trachea midline Resp: COMMON NORMALS: normal respiratory effort, No use of accessory muscles and clear to auscultation bilaterally AUSCULTATION: clear to auscultation bilaterally Cardio: COMMON NORMALS: no JVD, regular rate and regular rhythm RATE: r egular rate RHYTHM: regular rhythm GI: COMMON NORMALS: Soft to palpation PALPATION: Yes Soft to palpation and No Guarding due to palpation present (GI) OTHER: Some tenderness in the left mid and left lower abdomen as well as the suprapubic area. In general she has mild diffuse tenderness but these are the most notable. She does have hyperactive bowel sounds. No distention. Extremity: COMMON NORMALS: normal to inspection Neuro: COMMON NORMALS: moves all extremities, no focal motor deficits and no sensory deficits noted SENSORIUM/ORIENTATION: Yes alert SPEECH: speech normal Psych: COMMON NORMALS: mental status grossly normal, Normal thought process present, cooperative, normal affect and speech normal SPEECH: Yes normal speech THOUGHT PROCESS: Normal thought process present Skin: COMMON NORMALS: no rashes or lesions noted, turgor normal and no jaundice GENERAL SKIN EXAM: no rashes or lesions noted and turgor normal Course 2 Vital Signs: Vital signs: Vital Signs Pulse Rate 71 08/22/24 15:13 Blood Pressure 117/89 08/22/24 15:13 Pulse Oximetry 98 08/22/24 15:13 Oxygen Delivery Me thod Room Air 08/22/24 12:43 MDM - Nausea/Vomiting/Diarrhea Medical Decision Making Acute on chronic diarrhea now with some pinkish mucus in the diarrhea. She is developing some mild to moderate abdominal pain as well. No systemic symptoms. Recently finished clindamycin 10-day treatment. Differential diagnosis includes antibiotic associated diarrhea, C. difficile, colitis, diverticulitis, gastroenteritis, other infectious diarrhea, dehydration, electrolyte disturbance, acid-base disturbance. Patient was able to provide a stool sample here. We have sent for stool studies. CT scan of the abdomen pelvis is pending. Rehydration with 1 L of normal saline. Update Patient had an extended stay in the emergency department due to the fact that he really wanted to follow-up on her C. difficile. Fortunately we waited because she is positive for C. difficile. This definitely changes her management. She will be prescribed Dificid 200 mg p.o. twice daily for [address] scan is showing generalized colitis. I think she is well enough to go home she has a normal white count, no fever, well-hydrated, no acid-base disturbance, no electrolyte disturbances, and she is taking fluids in the emergency department by mouth. Patient will be given return precautions. Lab Data 08/22/24 11:22 08/22/24 11:22 Radiology Impressions Abdomen/Pelvis CT 08/22/24 11:09 IMPRESSION: Diffuse colitis. Laboratory Results WBC 9.58 10^3/uL (3.29-11.43) 08/22/24 11:22 RBC 5.02 10^6/uL (3.85-5.65) 08/22/24 11:22 Hgb 14.00 g/dL (11.27-16.99) 08/22/24 11:22 Hct 43.8 % (36-47) 08/22/24 11:22 MCV 87.3 fl (85-98) 08/22/24 11:22 MCH 27.9 pg (27-33) 08/22/24 11:22 MCHC 32.0 g/dL (30-55) 08/22/24 11:22 RDW 13.3 % (12.1-15.1) 08/22/24 11:22 Plt Count 325 10^3/cmm (157-399) 08/22/24 11:22 MPV 10.1 fL (7.4-10.4) 08/22/24 11:22 Neut % (Auto) 69.2 % 08/22/24 11:22 Lymph % (Auto) 20.7 % 08/22/24 11:22 [place] % (Auto) 7.3 % 08/22/24 11:22 Eos % (Auto) 1.9 % 08/22/24 11:22 Baso % (Auto) 0.6 % 08/22/24 11:22 Neut # (Auto) 6.63 10^3/uL (1.8-7.7) 08/22/24 11:22 Lymph # (Auto) 2.0 10^3/uL (0.8-4.8) 08/22/24 11:22 [place] # (Auto) 0.7 10^3/uL (0.2-0.9) 08/22/24 11:22 Eos # (Auto) 0.2 10^3/uL (0.0-0.8) 08/22/24 11:22 Baso # (Auto) 0.1 10^3/uL (0.0-0.1) 08/22/24 11:22 Nucleated RBC % (auto) 0 % 08/22/24 11:22 Nucleated RBCs # 0.0 /100WBC 08/22/24 11:22 Sodium 137 mmol/L (136-145) 08/22/24 11:22 Potassium 4.2 mmol/L (3.5-5.1) 08/22/24 11:22 Chloride 100 mmol/L (98-107) 08/22/24 11:22 Carbon Dioxide 26 mmol/L (22-29) 08/22/24 11:22 Anion Gap 15.2 (5-19) 08/22/24 11:22 BUN 5 mg/dL (6-20) L 08/22/24 11:22 Creatinine 0.7 mg/dL (0.5-0.9) 08/22/24 11:22 GFR Calculation 90.1 mL/min (90-130) 08/22/24 11:22 Glucose 91 mg/dL (65-115) 08/22/24 11:22 Calculated Osmolality 281 mOsm/kg (285-295) L 08/22/24 11:22 Calcium 9.3 mg/dL (8.5-10.5) 08/22/24 11:22 Magnesium 2.3 mg/dL (1.7-2.3) 08/22/24 11:22 Total Bilirubin 0.3 mg/dL (0.15-1.2) 08/22/24 11:22 AST 24 U/L (0-32) 08/22/24 11:22 ALT 30 U/L (0-33) 08/22/24 11:22 Alkaline Phosphatase 116 U/L (35-105) H 08/22/24 11:22 Total Protein 7.2 g/dL (6.6-8.7) 08/22/24 11:22 Albumin 4.2 g/dL (3.5-5.2) 08/22/24 11:22 Globulin 3.0 g/dL (1.3-4.6) 08/22/24 11:22 Urine Color Yellow (Yellow) 08/22/24 10:30 Urine Appearance Clear (CLEAR) 08/22/24 10:30 Urine pH 7.0 (5-7) 08/22/24 10:30 Ur Specific [place] 1.002 (1.005-1.030) L 08/22/24 10:30 Urine Protein Negative (Negative) 08/22/24 10:30 Urine Glucose (UA) Negative (Normal) 08/22/24 10:30 Urine Ketones Negative (Negative) 08/22/24 10:30 Urine Blood Negative (Negative) 08/22/24 10:30 Urine Nitrate Negative (Negative) 08/22/24 10:30 Urine Bilirubin Negative (Negative) 08/22/24 10:30 Urine Urobilinogen 0.2 mg/dL (Negative) 08/22/24 10:30 Ur Leukocyte Esterase Negative (Negative) 08/22/24 10:30 Urine RBC 0-2 /hpf (0-2) 08/22/24 10:30 Urine WBC 0-5 /hpf (0-5) 08/22/24 10:30 Ur Squamous Epith Cells 0-5 /hpf (0-5) 08/22/24 10:30 Amorphous Sediment Not Reportable 08/22/24 10:30 Urine Bacteria None seen /hpf (NONE) 08/22/24 10:30 Hyaline Casts 0-4 /lpf H 08/22/24 10:30 C. difficile (PCR) Positive (Negative) H 08/22/24 10:30 C.difficile Tox Confrm Positive (Negative) H 08/22/24 10:30 All radiology interpretation(s) finalized by discharge Discharge Plan Discharge Patient Disposition: Home Clinical Impression: Clostridium difficile colitis Condition: Stable Prescriptions: New Dificid 200 mg tablet 200 mg PO BID 10 Days Qty: 20 0RF Discontinued clindamycin HCl [Cleocin HCl] 150 mg capsule 450 mg PO TID 10 Days Qty: 90 0RF No Action ibuprofen 800 mg tablet 800 mg PO TID PRN (Reason: pain) Qty: 60 1RF nystatin-triamcinolone 100,000-0.1 unit/g-% cream 1 applic topical TID Qty: 60 0RF Rx Instructions: apply to nipple 3 x / day Discharge Orders: Discharge ED (Routine); Ordered 08/22/24 Ordered By: Avni Navarro Referrals: Elidia Logan FNP-C [Primary Care Provider, Family Practice] - 08/31/24 Patient Instructions: C. Diff (Clostridioides Difficile) Infection (ED), Pain Management, Patient Portal & Kvng Instructions Activity Restrictions/Additional Instructions: Discharge Instructions for First Episode Clostridioides difficile Infection (CDI) Treated with Fidaxomicin - Diagnosis and Treatment: The patient has been diagnosed with a first episode of CDI and is being treated with fidaxomicin 200 mg orally twice daily for 10 days, in accordance with recommendations from the Infectious Diseases Society of [place] (IDSA), the Society for Healthcare Epidemiology of [place] (COBOS), and the [place] [employer] of Colon and Rectal [employer]geons. The patient is currently well-appearing and nontoxic.[1] https://pubmed.ncbi.nlm.nih.gov/80664518 [2] https://pubmed.ncbi.nlm.nih.gov/80661798 - Medication Adherence: Complete the full 10-day course of fidaxomicin as prescribed, even if symptoms improve before completion.[1] https://pubmed.ncbi.nlm.nih.gov/62347299 [2] https://pubmed.ncbi.nlm.nih.gov/75017728 - Antibiotic Stewardship: If possible, discontinue any non-essential antibiotics, as continued use increases the risk of CDI recurrence. If concomitant antibiotics are required for other indications, minimize their duration and use the lowest-risk agents available.[1] https://pubmed.ncbi.nlm.nih.gov/19316837 [3] https://pubmed.ncbi.nlm.nih.gov/71654755 [4] https:/ /pubmed.ncbi.nlm.nih.gov/52875796 - Infection Control: Practice strict hand hygiene with soap and water after using the bathroom and before eating. Alcohol-based hand sanitizers are less effective against C. difficile spores.[5] https://pubmed.ncbi.nlm.nih.gov/69671695 - Diet and Hydration: Maintain adequate oral hydration and resume a regular diet as tolerated. Monitor for signs of dehydration, such as decreased urine output or dizziness.[5] https://pubmed.ncbi.nlm.nih.gov/26305646 - Probiotics and Acid Suppression: Routine use of probiotics is not recommended for prevention of CDI recurrence. Discontinue unnecessary proton pump inhibitors if possible.[5] https://pubmed.ncbi.nlm.nih.gov/72462074 [6] https://pubmed.ncbi.nlm.nih.gov/73294552 [4] https:/ /pubmed.ncbi.nlm.nih.gov/99259203 - Return Precautions: Return to care immediately for any of the following: - Worsening or persistent diarrhea (>= stools in 24 hours) - Signs of dehydration (e.g., dry mouth, dizziness, reduced urine output) - Severe abdominal pain, distension, or cramping - Fever >38.5?C (101.3?F) - Blood in stool - Inability to tolerate oral intake - New confusion or lethargy - Follow-Up: Schedule outpatient follow-up within 1?2 weeks to assess for symptom resolution and monitor for recurrence, which occurs in up to 20% of cases.[7] https://pubmed.ncbi.nlm.nih.gov/91414266 - Recurrence: If symptoms recur after completion of therapy, prompt reassessment and repeat stool testing for C. difficile toxin are indicated. Early intervention reduces the risk of complications.[2] https://pubmed.ncbi.nlm.nih.gov/99934520 [7] https://pubmed.ncbi.nlm.nih.gov/71180981 - Contact Precautions: Avoid sharing bathrooms if possible until diarrhea resolves. Clean high-touch surfaces with a sporicidal disinfectant.[5] https://pubmed.ncbi.nlm.nih.gov/77683031 Summary: The patient is being discharged on fidaxomicin 200 mg twice daily for 10 days for a first episode of CDI, with instructions for medication adherence, infection control, and clear return precautions as outlined above, consistent with current guideline recommendations.[1] https://pubmed.ncbi.nlm.nih.gov/32274129 [5] https://pubmed.ncbi.nlm.nih.gov/26479243 [3] https:/ /pubmed.ncbi.nlm.nih.gov/23205527 [2] https://pubmed.ncbi.nlm.nih.gov/99062377 [7] https://pubmed.ncbi.nlm.nih.gov/35875203 [4] https://pubmed.ncbi.nlm.nih.gov/77114353 Print Language: Nauruan Coding Level of Care Code ED Paediatric Thoracic Physician for Jaspal Suarez
[2024-08-22 11:26] LABS: Bilirubin Urine Negative (Negative); Blood Urine Negative (Negative); Glucose Urine UA Negative (Normal); Ketones Urine Negative (Negative); Leukocyte Esterase Urine Negative (Negative); Nitrate Urine Negative (Negative); Protein Urine Negative (Negative); Specific Gravity, Urine 1.002 (1.005-1.030); Urine Appearance Clear (CLEAR); Urine Color Yellow (Yellow); Urobilinogen Urine 0.2 mg/dL (Negative)
[2024-08-22] MEDS: sodium chloride 0.9% 1,000 ML 999 ML IV (11:31)
[2024-08-22 11:32] LABS: Add Urine Microscopic? YES; Bacteria Urine None Seen /hpf; Hyaline Casts Urine 0-4 /lpf; RBC Urine 0-2 /hpf (0-2); Squamous Epithelial Cell Urine 0-5 /hpf (0-5); WBC Urine 0-5 /hpf (0-5)
[2024-08-22 11:36] LABS: Add Urine Culture? No
[2024-08-22 11:39] LABS: Basophils # 0.1 10^3/uL (0.0-0.1); Basophils % 0.6 %; Eosinophils # 0.2 10^3/uL (0.0-0.8); Eosinophils % 1.9 %; Hematocrit 43.8 % (36-47); Lymphocytes % 20.7 %; Mean Corpuscular Hemoglobin 27.9 pg (27-33); Mean Corpuscular Volume 87.3 fl (85-98); Mean Platelet Volume 10.1 fL (7.4-10.4); Monocytes # 0.7 10^3/uL (0.2-0.9); Monocytes % 7.3 %; Neutrophils # 6.63 10^3/uL (1.8-7.7); Neutrophils % 69.2 %; Nucleated Red Blood Cells % 0 %; Platelet Count 325 10^3/cmm (157-399); Red Blood Count 5.02 10^6/uL (3.85-5.65); Red Cell Distribution Width 13.3 % (12.1-15.1); White Blood Count 9.58 10^3/uL (3.29-11.43)
[2024-08-22] MEDS: iohexol 350 mg/mL 500 mL Btl (per mL) IV (11:41)
[2024-08-22 11:56] LABS: Alanine Aminotransferase 30 U/L (0-33); Albumin Level 4.2 g/dL (3.5-5.2); Alkaline Phosphatase 116 U/L (35-105); Anion Gap 15.2 (5-19); Aspartate Amino Transferase 24 U/L (0-32); Blood Urea Nitrogen 5 mg/dL (6-20); Calcium 9.3 mg/dL (8.5-10.5); Carbon Dioxide 26 mmol/L (22-29); Chloride 100 mmol/L (98-107); Glomerular Filtration Rate 90.1 mL/min (90-130); Glucose 91 mg/dL (65-115); Magnesium 2.3 mg/dL (1.7-2.3); Osmolality Calculated 281 mOsm/kg (285-295); Potassium 4.2 mmol/L (3.5-5.1); Sodium 137 mmol/L (136-145); Total Bilirubin 0.3 mg/dL (0.15-1.2); Total Protein 7.2 g/dL (6.6-8.7)
[2024-08-22 12:43] VITALS: BP 122/65; PULSE 62; O2SAT 98
[2024-08-22 13:55] LABS: C.Diff PCR (Lab) POSITIVE (Negative)
[2024-08-22 13:56] LABS: Clostridioides Difficile Toxin POSITIVE (Negative)
[2024-08-22 15:13] VITALS: BP 117/89; PULSE 71; O2SAT 98
== END 2024-08-22 15:14 | disposition home or self-care (01) ==
PROVIDERS: Emergency Provider Emergency Medicine; PCP Nurse Practitioner Family
DX: A04.72 Enterocolitis due to Clostridium difficile, not specified as recurrent (principal); F17.210 Nicotine dependence, cigarettes, uncomplicated
CPT/HCPCS: 74177; 80053; 81001; 82274; 83630; 83735; 85025; 87045; 87177; 87209; 87324; 87427; 87449; 87493; 99285; J7030

== ENCOUNTER → 2024-09-10 12:45 | Outpatient (BNVA) | payer OTHER, SELFPAY | PROVIDERS: PCP Nurse Practitioner Family; Visit Provider Nurse Practitioner Family | DX: R19.7 Diarrhea, unspecified (principal) | CPT/HCPCS: 80053; 85025 ==

== ENCOUNTER → 2024-09-14 08:40 | Outpatient (BNVA) | payer OTHER, SELFPAY | PROVIDERS: PCP Nurse Practitioner Family; Visit Provider Nurse Practitioner Family | DX: R19.7 Diarrhea, unspecified (principal) | CPT/HCPCS: 87045; 87427; 87449; 87493 ==

== ENCOUNTER → 2024-09-22 12:35 | Outpatient (BNVA) | payer OTHER, SELFPAY | PROVIDERS: PCP Nurse Practitioner Family; Visit Provider Nurse Practitioner Family | DX: A04.72 Enterocolitis due to Clostridium difficile, not specified as recurrent (principal); R19.7 Diarrhea, unspecified | CPT/HCPCS: 87045; 87324; 87427; 87449; 87493 ==

== ENCOUNTER → 2024-10-22 11:40 | Outpatient (BNVA) | payer OTHER, SELFPAY | PROVIDERS: PCP Nurse Practitioner Family; Visit Provider Nurse Practitioner Family | DX: R19.7 Diarrhea, unspecified (principal) | CPT/HCPCS: 87324; 87493 ==

== ENCOUNTER → 2024-11-16 15:22 | Outpatient (BNVA) | payer OTHER, SELFPAY | PROVIDERS: PCP Nurse Practitioner Family; Visit Provider Nurse Practitioner Family | DX: A04.72 Enterocolitis due to Clostridium difficile, not specified as recurrent (principal) | CPT/HCPCS: 80053 ==